=== PATIENT | female | born 1985 | race Hispanic/Latino ===

== ENCOUNTER 2025-05-02 17:18 | Emergency (ER) | payer MEDICAID, OTHER ==
[~2025-05-02] VITALS: Ht 154.9 cm; Wt 99.8 kg
[2025-05-02 17:50] LABS: RAPID GROUP A STREP negative (NEGATIVE)
[2025-05-02 17:52] LABS: SARS-CoV-2, RNA, NAAT NEGATIVE SARS CoV-2 (NEGATIVE)
[2025-05-02 17:58] LABS: INFLUENZA TYPE A Negative For Type A (NEGATIVE); INFLUENZA TYPE B Negative For Type B (NEGATIVE)
--- NOTE | 2025-05-02 19:19 | HMCIMG ---
EXAM: CR Chest, 1 View. CLINICAL HISTORY: cough COMPARISON: None provided. FINDINGS: LUNGS: The lungs show no infiltrate or other acute finding. PLEURAL SPACES: No evidence of pleural effusion or pneumothorax. MEDIASTINUM: The cardiomediastinal silhouette is within normal limits. BONES: No acute osseous abnormality. IMPRESSION: No acute cardiopulmonary pathology is evident. /[place]
[2025-05-02] MEDS: BENZONATATE 100 MG CAPSULE PO STA (19:20)
--- NOTE | 2025-05-02 19:31 | ERN ---
ED Note History of Present Illness Stated Complaint: DRY COUGH X 2 WEEKS Chief Complaint: Cough Time Seen by MD: 17:19 Time Seen by Midlevel: 17:22 Dictation: 39-year-old female coming in with complaints of cough that has been going on for the last two weeks. Denies chest pain or chest discomfort. Denies any throat pain. Allergies: Coded Allergies: No Known Allergies (Unverified Allergy, Unknown, 05/02/25) Home Meds Active Scripts Albuterol Sulfate (Ventolin Hfa/Proventil Hfa/Proair Hfa) 90 Mcg Puff, 1 PUFF IH Q4H PRN for SHORTNESS OF BREATH for 5 Days, #1 INH 0 Refills PHARMACY TO DISPENSE 1 INHALER FOR USE Prov:ZANE MELENDREZ CNP 05/02/25 Past Medical History Past Medical History: Sinusitis Surgical History: None LMP: Apr 20, 2025 Review of System Dictation Constitutional: Negative for fever,chills, and weight loss Eyes: Negative for injury, pain,redness, and discharge ENT: Negative for injury,pain or swelling Cardiovascular: Negative for chest pain, palpitations, and edema Respiratory: Complaining of cough Abdomen/GI: Negative for abdominal pain, nausea, vomiting, diarrhea, and constip ation Back: Negative for injury and pain : Negative for injury, bleeding and discharge MS/Extremity: Negative for injury and deformity Skin: Negative for rash, and discoloration Neuro: Negative for headache, weakness, numbness, tingling, and seizure Psych: Negative for suicide ideation, homicidal ideation, and hallucinations Review of Systems: was completed Initial Vital Sign VS Vital Signs Date Time Temp Pulse Resp B/P (MAP) Pulse Ox O2 Delivery O2 Flow Rate FiO2 05/02/25 17:19 98.2 107 18 199/121 98 Room Air 0 05/02/25 19:15 21 Physical Exam Dictation General: awake, alert, NAD Head/Face: Normocephalic, atraumatic Eyes: PERRL, EOMI, vision at baseline ENT: oral cavity clear, TMs clear, no signs of infection Neck: Trachea midline, supple, no nuchal rigidity Cardiovascular: RRR, normal S1/S2, No MRGs, no JVD Respiratory: CTAB, no respiratory distress, No rales or wheezes Abdomen: Soft, non-tender, non-distended, normal bowel sounds, no guarding or rebound. Skin: Warm, dry, normal turgor, no rash MS/Extremity: Pulses equal, no cyanosis, neurovascular intact, FROM Neuro: COAx4, GCS 15, strength 5/5, CN 2-12 intact, normal cerebellar exam, normal gait, Psych: Normal behavior, mood, and affect normal Results (Laboratory/Radiology) Laboratory/Radiology Laboratory Tests Test 05/02/25 17:23 Influenza Type A Antigen Negative For Type A Influenza Type B Antigen Negative For Type B SARS-CoV-2, RNA, NAAT NEGATIVE SARS CoV-2 Group A Streptococcus Rapid negative (NEGATIVE) Labs Reviewed?: Yes X-RAY Comment: [place] [id number] [address] IMAGING REPORT Signed PATIENT: MASON SANDOVAL MR#: [id number] : 1985 SEX: F AGE: 39 LOCATION: [facility] ORDER 22 STATUS: [facility] REPORT#: [id number] SERVICE 172 REASON: cough ORDERING PHYSICIAN: ZANE MELENDREZ CNP PROCEDURE: CXR1VW - CHEST 1VW EXAM: CR Chest, 1 View. CLINICAL HISTORY: cough COMPARISON: None provided. FINDINGS: LUNGS: The lungs show no infiltrate or other acute finding. PLEURAL SPACES: No evidence of pleural effusion or pneumothorax. MEDIASTINUM: The cardiomediastinal silhouette is within normal limits. BONES: No acute osseous abnormality. IMPRESSION: No acute cardiopulmonary pathology is evident. /[place] DICTATED BY: FLORENCIO ALEGRIA Jr., MD DATE: 05/02/252017 ELECTRONICALLY SIGNED BY: FLORENCIO ALEGRIA Jr., MD DATE: 05/02/252017 ED Course ED Course Orders Procedure Category Date Status Time Covid Rna Naat LAB 05/02/25 Complete 17:21 Influenza Type A & B, LAB 05/02/25 Complete Rapid 17:21 Rapid (Group A Strep) LAB 05/02/25 Complete 17:21 Chest 1vw RAD 05/02/25 Resulted 17:21 Dexamethasone 4mg/Ml PHA 05/02/25 Complete 1ml Vial (Dexametha 17:21 Benzonatate 100 Mg PHA 05/02/25 Complete Capsule (Tessalon 100 17:21 Ketorolac PHA 05/02/25 Complete Tromethamine 15mg/Ml 17:30 Diphenhydramine Hcl PHA 05/02/25 Complete (Benadryl Inj) 17:30 Current Medications Medications (Trade) Dose Ordered Sig/Rasheed Route PRN Reason Start Time Stop Time Status Last Admin Dose Admin Benzonatate (Tessalon 100mg Caps) 200 mg ONCE STAT PO 05/02/25 17:21 05/02/25 17:25 DC 05/02/25 19:20 Dexamethasone Sodium Phosphate (dexaMETHasone 4MG/ML 1ML VIAL) 6 mg ONCE STAT IM 05/02/25 17:21 05/02/25 17:25 DC 05/02/25 19:21 Diphenhydramine HCl (BENAdryl INJ) 25 mg ONCE ONCE IM 05/02/25 17:30 05/02/25 17:31 DC 05/02/25 19:21 Ketorolac Tromethamine (toRADol) 15 mg ONCE ONCE IM 05/02/25 17:30 05/02/25 17:31 DC 05/02/25 19:21 Vital Signs Date Time Temp Pulse Resp B/P (MAP) Pulse Ox O2 Delivery O2 Flow Rate FiO2 05/02/25 20:22 98.6 98 20 154/74 99 Room Air* 0 05/02/25 19:15 98.2 106 18 167/104 98 Room Air* 0 05/02/25 17:19 98.2 107 18 199/121 98 Room Air 0 Medical Decision Making MDM MDM: 39-year-old female coming in with complaints of dry cough that has been going on for the last two weeks. Denies chest pain or chest discomfort. Denies any throat pain. Patient has swabs are negative. Chest x-ray shows no acute finding. Discussed with the patient possibility of being post viral cough. After medications patient states he feels better. We will prescribe patient pro air to take at home and follow up outpatient with PCP. Discussed on red flag symptoms of when to return back to the ER, patient verbalized understanding, answered all questions. Differential diagnosis:, flu, pneumonia, bronchitis Rationale: Tests considered and ordered secondary to shared decision making include: Previous outside records reviewed: Old ER visits. Risk of complication and/or morbidity or mortality of patient management: None Medications-Per medication reconciliation Need for hospitalization: Patient does not meet criteria for hospitalization. Need for emergency major/minor surgery: No There are no social concerns with this patient. Prescription drug management Prescriptions will include symptomatic care Patient's prior external medical records from other ER visits were reviewed by me as indicated. Prior testing and results from previous visits were reviewed. Prior tests were taken into account with medical decision making and resource utilization, independent historian/historians were used to obtain complete medical history. I independently interpreted the test that were performed, results were reviewed by me and considered findings on radiology if ordered. Medical management and examination interpretation discussions were had by me with other qualified healthcare professionals as indicated for the patient's care. DX & DISP Disposition: Discharge Departure Impression: Primary Impression: Post-viral cough syndrome Condition: Stable Scripts Albuterol Sulfate (Ventolin Hfa/Proventil Hfa/Proair Hfa) 90 Mcg Puff 1 PUFF IH Q4H PRN for SHORTNESS OF BREATH for 5 Days, #1 INH 0 Refills PHARMACY TO DISPENSE 1 INHALER FOR USE Prov: ZANE MELENDREZ CNP 05/02/25 Additional Instructions: Use the inhaler as needed. Follow up with your primary doctor in the next couple of days. Return to the hospital if you have any worsening symptoms. Referrals: SELF,REFERRAL (PCP) Time of Disposition: 20:17 I have reviewed the case, and I agree with, Diagnosis and Plan I performed a substantive portion of the visit. I have reviewed and personally made and approve the management plan that is documented in the notes by myself with TASHI/resident. I acknowledged full responsibility for the patient's management plan. ZANE MELENDREZ CNP May 02, 2025 19:31 IVETH DAVALOS DO May 03, 2025 01:06
[2025-05-02] MEDS ORDERED: ALBUHFA IH (20:17)
[2025-05-02 20:22] VITALS: BP 154/74; PULSE 98; RESP 20; TEMP 98.6; O2SAT 99
== END 2025-05-02 20:27 | disposition home or self-care (01) ==
LOC: EDH 17:18
DX: G93.31 Postviral fatigue syndrome (principal); Z20.822 Contact with and (suspected) exposure to COVID-19
CPT/HCPCS: 99284; 71045; 87635; 87880; 87804 ×2; 96372 ×3; J1100; J1885; J1200